=== PATIENT | female | born 1955 | race Caucasian/White ===

== ENCOUNTER → 2018-11-28 | Emergency (ER) | payer OTHER ==
[~2018-11-28] VITALS: Ht 157.5 cm; Wt 70.8 kg
[~2018-11-28] MED LIST: AMOX1TAB12 PO; CELEXA20 MG; CELEXA20 MG PO; CLONAZEPAM2 MG PO; CLORAZEPATE D3.75 MG; KETO10TA2 PO; ORPHENADRINE C100 MG PO; TESSALON PERLE100 M1 PO; TUSSI PRES-B L120 M1 PO
== END | disposition home or self-care (01) ==
LOC: ER 20:00
DX: M62.838 Other muscle spasm (principal); R07.89 Other chest pain